=== PATIENT | male | born 1965 | race Caucasian/White ===

== ENCOUNTER 2016-09-11 15:29 | Emergency (ER) | payer OTHER ==
[~2016-09-11] VITALS: Ht 167.6 cm; Wt 119.2 kg
[~2016-09-11 15:29] MED LIST: ACET-749 PO; BUSP-8 PO; LISI-787 PO; LOVA20TA4 PO; PENI500T2 PO; PRLSR20 PO; SERT-234 PO
[2016-09-11 15:43] VITALS: TEMP 36.6; Ht 167.6 cm; Wt 119.2 kg
--- NOTE | 2016-09-11 16:07 | EMERGENCY ROOM VISIT NOTE ---
History Report prepared by Maria Elena: Sunitha Cline Under the Supervision of: Dr. Fabiano Milton D.O. First contact with patient: 15:47 Chief Complaint: CARDIAC ASSESSMENT Stated Complaint: PALPITATIONS Nursing Triage Summary: pt c/o "heart palpitations for a week. I went to [place] last week and was told my potassium was a little low..I went to see PCP on thursday and since then I have been really stressed out because I am suppose to get a stress test." pt today deenies worsening palpitations. girlfriend states "it seams to get worse when he gets worked up. pt denies chest pain/SOB History of Present Illness The patient is a 51 year old male who presents to the Emergency Room with complaints of intermittent palpitations beginning 1 week ago. The patient states that he was seen in the [place] ED 1 week ago for palpitations and was discharged home. He reports that he followed up with his PCP earlier this week and he recommended a stress test and Holter monitoring. He notes that his palpitations are worsened with anxiety and he has had increased stress in the last week. The patient reports no pain with exertion or increased shortness of breath when he lays down. He complains of a warm feeling in his chest and a feeling of his heart skipping beats. He denies any chest pain, shortness of breath, leg pain, and leg swelling. The patient notes that he had a tibia posterior tendon repair in June that went well. Source of History: patient Onset: 1 week ago Position: chest Quality: other (palpitations) Timing: intermittent Modifying Factors (Worsening): other (stress) Associated Symptoms: No chest pain, No SOB Note: He complains of a warm feeling in his chest and a feeling of his heart skipping beats. He denies any leg pain and leg swelling. Review of Systems See HPI for pertinent positives & negatives. A total of 10 systems reviewed and were otherwise negative. Past Medical & Surgical Medical Problems: (1) HTN (hypertension) Family History No pertinent family history stated. Social History Smoking Status: Former Smoker Marital Status: Housing Status: lives with family Occupation Status: unemployed Current/Historical Medications Scheduled Buspirone Hcl (Buspirone Hcl), 10 MG PO HS Buspirone Hcl (Buspirone Hcl), 0.5 TAB PO QAM Lisinopril/Hctz (Zestoretic 20MG/12.5MG), 1 TAB PO DAILY Lovastatin (Mevacor), 20 MG PO HS Pantoprazole (Protonix), 40 MG PO DAILY Penicillin V Potassium (Veetids), 500 MG PO BID Sertraline (Zoloft), 150 MG PO DAILY Allergies Coded Allergies: Fluoxetine (Unverified Adverse Reaction, Unknown, JITTERY, 09/11/16) Physical Exam Vital Signs Date Time Temp Pulse Resp B/P (MAP) Pulse Ox O2 Delivery O2 Flow Rate FiO2 09/11/16 18:10 70 18 116/89 96 Room Air 09/11/16 16:14 97 Room Air 09/11/16 16:14 97 Room Air 09/11/16 16:06 82 09/11/16 15:46 98 Room Air 09/11/16 15:43 36.6 93 18 137/84 98 Room Air Physical Exam GENERAL: Patient is awake, alert, and in no acute distress. Patient is resting comfortably and showing no signs of anxiety EYES: The conjunctivae are clear. The pupils are round and reactive. EARS, NOSE, MOUTH AND THROAT: The nose is without any evidence of any deformity. Mucous membranes are moist tongue is midline NECK: The neck is nontender and supple. RESPIRATORY: Normal respiratory effort is noted there is no evidence of wheezing rhonchi or rales CARDIOVASCULAR: Regular rate and rhythm noted there no murmurs rubs or gallops normal S1 normal S2 GASTROINTESTINAL: The abdomen is soft. Bowel sounds are present in all quadrants. Abdomen is nontender MUSCULOSKELETAL/EXTREMITIES: There is no evidence of gross deformity full range of motion is noted in the hips and shoulders SKIN: There is no obvious evidence of any rash. There are no petechiae, pallor or cyanosis noted. No calf tenderness was noted. NEUROLOGIC: Patient is awake alert and oriented x3 strength is symmetric patellar reflexes are 2+ bilaterally Medical Decision & Procedures ER Provider Diagnostic Interpretation: X-ray results as stated below per interpretation by me and the radiologist. CHEST ONE VIEW PORTABLE FINDINGS: The heart is at the upper limits of normal in size. There is no failure. There is no lobar consolidation. A vague opacity located lateral to the left heart border likely represents a summation[ . No pleural effusions are visualized. IMPRESSION: AP portable study. No evidence of focal pulmonary consolidation. No evidence of failure. Electronically signed by: Chase Ji M.D. 09/11/2016 4:20 PM Dictated Date/Time: 09/11/2016 4:19 PM Laboratory Results 09/11/16 16:08 Red Blood Count 5.66, Mean Corpuscular Volume 87.5, Mean Corpuscular Hemoglobin 31.1, Mean Corpuscular Hemoglobin Concent 35.6, Mean Platelet Volume 10.8, Neutrophils (%) (Auto) 55.2, Lymphocytes (%) (Auto) 32.7, Monocytes (%) (Auto) 10.0, Eosinophils (%) (Auto) 1.4, Basophils (%) (Auto) 0.5, Neutrophils # (Auto ) 6.65, Lymphocytes # (Auto) 3.94, Monocytes # (Auto) 1.21, Eosinophils # (Auto ) 0.17, Basophils # (Auto) 0.06 09/11/16 16:08 Test 09/11/16 16:08 09/11/16 16:14 White Blood Count 12.06 K/uL (4.8-10.8) Red Blood Count 5.66 M/uL (4.7-6.1) Hemoglobin 17.6 g/dL (14.0-18.0) Hematocrit 49.5 % (42-52) Mean Corpuscular Volume 87.5 fL (80-100) Mean Corpuscular Hemoglobin 31.1 pg (25-34) Mean Corpuscular Hemoglobin Concent 35.6 g/dl (32-36) Platelet Count 268 K/uL (130-400) Mean Platelet Volume 10.8 fL (7.4-10.4) Neutrophils (%) (Auto) 55.2 % Lymphocytes (%) (Auto) 32.7 % Monocytes (%) (Auto) 10.0 % Eosinophils (%) (Auto) 1.4 % Basophils (%) (Auto) 0.5 % Neutrophils # (Auto) 6.65 K/uL (1.4-6.5) Lymphocytes # (Auto) 3.94 K/uL (1.2-3.4) Monocytes # (Auto) 1.21 K/uL (0.11-0.59) Eosinophils # (Auto) 0.17 K/uL (0-0.5) Basophils # (Auto) 0.06 K/uL (0-0.2) RDW Standard Deviation 44.0 fL (36.4-46.3) RDW Coefficient of Variation 13.6 % (11.5-14.5) Immature Granulocyte % (Auto) 0.2 % Immature Granulocyte # (Auto) 0.03 K/uL (0.00-0.02) Prothrombin Time 10.7 SECONDS (9.0-12.0) Prothromb Time International Ratio 1.0 (0.9-1.1) Activated Partial Thromboplast Time 26.5 SECONDS (21.0-31.0) Partial Thromboplastin Ratio 1.0 Anion Gap 9.0 mmol/L (3-11) Est Creatinine Clear Calc Drug Dose 81.7 ml/min Estimated GFR () 73.2 Estimated GFR (Non- 63.2 BUN/Creatinine Ratio 11.9 (10-20) Calcium Level 9.8 mg/dl (8.5-10.1) Total Bilirubin 1.1 mg/dl (0.2-1) Aspartate Amino Transf (AST/SGOT) 42 U/L (15-37) Alanine Aminotransferase (ALT/SGPT) 44 U/L (12-78) Alkaline Phosphatase 99 U/L (45-117) Total Creatine Kinase 82 U/L (39-308) Creatine Kinase MB 0.7 ng/ml (0.5-3.6) Creatine Kinase MB Ratio 0.9 (0-3.0) Troponin I < 0.015 ng/ml (0-0.045) Total Protein 8.1 gm/dl (6.4-8.2) Albumin 4.0 gm/dl (3.4-5.0) Globulin 4.1 gm/dl (2.5-4.0) Albumin/Globulin Ratio 1.0 (0.9-2) Thyroid Stimulating Hormone (TSH) 0.585 uIu/ml (0.300-4.500) Free Thyroxine 1.26 ng/dl (0.80-1.60) Chemistry Specimen Hemolysis Bedside D-Dimer 216 ng/mlFEU (0-450) Laboratory results per my review. Medications Administered Medications (Trade) Dose Ordered Sig/Jen Route Start Time Stop Time Status Last Admin Dose Admin Potassium Chloride (Klor-Con M10) 20 meq NOW STAT PO 09/11/16 17:02 09/11/16 17:04 DC 09/11/16 18:13 20 MEQ ECG Rate (beats per minute): 90 Rhythm: normal sinus Findings: nonspecific-ST abn, no ectopy Comparison ECG Date: 09/01/16 Change: no significant change ED Course 1547: The patient was evaluated in room B9. A complete history and physical examination were performed. 1702: Klor-Con M10 20meq PO. 1732: I reevaluated and updated the patient. 1743: Upon reevaluation, the patient is doing well. I discussed the results and treatment plan with the patient. He verbalized agreement of the treatment plan. The patient was discharged home. Medical Decision Differential diagnosis: Etiologies such as premature contractions, electrolyte abnormality, cardiac dysrhythmia, thyroid dysfunction, pulmonary embolism, infection, gastrointestinal, as well as others were entertained. Nursing notes reviewed. Additional history is obtained from the patient's significant other. The patient is a 51-year-old male who presented to the emergency department for an evaluation of palpitations. The patient was seen at a different emergency department for similar complaints recently. He currently is set up with a bunch breaker machine operator for a stress test and a Holter monitor. The patient was found to be in sinus rhythm in the emergency department. He was found have hypokalemia and it sounds as though this was a similar finding previously. I discussed the patient's laboratory and radiographic studies with him. He was treated with potassium replacement in the emergency department. He was encouraged to rest and avoid any strenuous activity. He was also encouraged to follow-up with his family [facility] as well as his cardiology appointment as scheduled. He was also encouraged to return to the emergency apartment immediately if symptoms change worsen or the need arises Medication Reconcilliation Current Medication List: was personally reviewed by me Blood Pressure Screening Patient's blood pressure: Elevated blood pressure Blood pressure disposition: Elevated BP felt to be situational Impression Primary Impression: Palpitations Additional Impression: Hypokalemia Scribe Attestation The scribe's documentation has been prepared under my direction and personally reviewed by me in its entirety. I confirm that the note above accurately reflects all work, treatment, procedures, and medical decision making performed by me. Departure Information Dispostion Home / Self-Care Referrals Jono Alan M.D. (PCP) Forms IMPORTANT VISIT INFORMATION Patient Instructions Diet High Potassium Dc, Heart Palpitations, My [facility] Additional Instructions Follow-up with your family for reevaluation. Drink plenty clear liquids. I would also recommend following up with the bunch breaker machine operator schedule the stress test and the Holter monitor to further evaluate the cause of her symptoms. Her potassium was low in the emergency department today I would recommend having rechecked as well. Problem Qualifiers
[2016-09-11 16:14] VITALS: O2SAT 97
--- NOTE | 2016-09-11 16:21 | DIAGNOSTIC IMAGING REPORT ---
CHEST ONE VIEW PORTABLE CLINICAL HISTORY: Respiratory distress COMPARISON STUDY: No previous studies for comparison. FINDINGS: The heart is at the upper limits of normal in size. There is no failure. There is no lobar consolidation. A vague opacity located lateral to the left heart border likely represents a summation[ . No pleural effusions are visualized. IMPRESSION: AP portable study. No evidence of focal pulmonary consolidation. No evidence of failure. Electronically signed by: Chase Ji M.D. 09/11/2016 4:20 PM Dictated Date/Time: 09/11/2016 4:19 PM
[2016-09-11 16:23] LABS: BASO % 0.5 %; BASO ABS # 0.06 K/uL (0-0.2); COMPLETE YES; EOS % 1.4 %; HEMATOCRIT 49.5 % (42-52); IG% 0.2 %; LYMPH % 32.7 %; LYMPH ABS # 3.94 K/uL (1.2-3.4); MEAN CELL VOLUME 87.5 fL (80-100); MEAN CORPUSCULAR HEMOGLOBIN 31.1 pg (25-34); MEAN CORPUSCULAR HGB CONC 35.6 g/dl (32-36); MEAN PLATELET VOLUME 10.8 fL (7.4-10.4); NEUT % 55.2 %; PLATELET COUNT 268 K/uL (130-400); RED BLOOD COUNT 5.66 M/uL (4.7-6.1); WHITE BLOOD COUNT 12.06 K/uL (4.8-10.8)
[2016-09-11] MEDS ORDERED: PANT40TA PO (16:27)
[2016-09-11] MEDS ORDERED: BUSP-8 PO (16:27)
[2016-09-11 16:34] LABS: PROTHROMBIN TIME (PATIENT) 10.7 SECONDS (9.0-12.0)
[2016-09-11 16:56] LABS: ALKALINE PHOSPHATASE 99 U/L (45-117); ALT/SGPT 44 U/L (12-78); AST/SGOT 42 U/L (15-37); BLOOD UREA NITROGEN 16 mg/dl (7-18); BUN/CREATININE RATIO 11.9 (10-20); CALCIUM 9.8 mg/dl (8.5-10.1); CARBON DIOXIDE 29 mmol/L (21-32); CHLORIDE 101 mmol/L (98-107); CKMB/CK RATIO 0.9 (0-3.0); GLUCOSE 99 mg/dl (70-99); POTASSIUM 2.9 mmol/L (3.5-5.1); SODIUM 139 mmol/L (136-145); THYROID STIMULATING HORMONE 0.585 uIu/ml (0.300-4.500)
[2016-09-11] MEDS ORDERED: POTASSIUM CHLORIDE 10 MEQ TABCR PO STA (17:02)
[2016-09-11 18:10] VITALS: BP 116/89; PULSE 70; O2SAT 96
== END 2016-09-11 18:14 | disposition home or self-care (01) ==
LOC: C.EDB 15:30
DX: R00.2 Palpitations (principal); E87.6 Hypokalemia; I10 Essential (primary) hypertension; Z87.891 Personal history of nicotine dependence; Z79.899 Other long term (current) drug therapy; Z88.8 Allergy status to other drugs, medicaments and biological substances